=== PATIENT | male | born 1995 ===

== ENCOUNTER 2022-06-08 05:44 | Emergency (ER) | payer SELFPAY ==
[2022-06-08] MEDS ORDERED: SODIUM CHLORIDE IRRI 500 ML 0 ML IR ONE (06:09)
[2022-06-08] MEDS ORDERED: HYDROGEN PEROXIDE 118 ML SOLUTION TP NR (06:52)
[2022-06-08] MEDS ORDERED: SODIUM CHLORIDE 0.9% IRR 500 ML BOTTLE IR NR (06:53)
--- NOTE | 2022-06-08 06:56 | Emergency Department Report ---
- General Chief complaint: Wound/Laceration Stated complaint: CUT ON RT HAND Time Seen by Provider: 06/08/22 06:35 Source: patient, EMS Mode of arrival: Ambulatory Limitations: No Limitations - History of Present Illness Initial comments: 27-year-old [id number] male presents with police custody with injury to right hand. Patient sustained a laceration to his right hand due to a ceramic bowl approximately 2 days ago. Patient states he received suture repair. He remove the sutures himself this morning because they were too tight. The wound was reopened with bleeding while being arrested by police. Minimal pain reported. Patient reports receiving a tetanus within the last 10 years - Related Data Previous Rx's Medication Instructions Recorded Last Taken Type Bacitracin Zinc Oint [Antibiotic 1 applicatio TP BID #1 tube 06/08/22 Unknown Rx Oint] Allergies Allergy/AdvReac Type Severity Reaction Status Date / Time No Known Allergies Allergy Verified 06/08/22 06:57 Abscess Boil HPI - HPI Chief Complaint: Wound/Laceration Stated Complaint: CUT ON RT HAND Time Seen by Provider: 06/08/22 06:35 Home Medications: Previous Rx's Medication Instructions Recorded Last Taken Type Bacitracin Zinc Oint [Antibiotic 1 applicatio TP BID #1 tube 06/08/22 Unknown Rx Oint] Allergies/Adverse Reactions: Allergies Allergy/AdvReac Type Severity Reaction Status Date / Time No Known Allergies Allergy Verified 06/08/22 06:57 ED Review of Systems ROS: Stated complaint: CUT ON RT HAND Other details as noted in HPI Comment: All other systems reviewed and negative ED Past Medical Hx - Medications Home Medications: Home Medications Medication Instructions Recorded Confirmed Last Taken Type Bacitracin Zinc Oint [Antibiotic 1 applicatio TP BID #1 tube 06/08/22 Unknown Rx Oint] ED Physical Exam - General Limitations: No Limitations - Other Other exam information: General: No acute distress Head: Atraumatic Eyes: normal appearance ENT: Moist mucous membranes Neck: Normal appearance, no midline tenderness Chest: Clear to auscultation bilaterally CV: Regular rate and rhythm Abdomen: Soft, normal bowel sounds, nontender, nondistended, no rebound or guarding Back: Normal inspection Extremity: dried blood with sealed wound on right 1.5 cm at [place] surface of bace of thumb, 2nd sealed wound with dried blood at palm at base of index finger 2 cm. no active bleeding. no significant wound dehiscence. No warmth, erythema, or drainage. Full range of motion of hand and fingers without deformity or tenderness Neuro: Alert O x 3, no facial asymmetry, speech clear, no gross motor sensory deficit Psych: Appropriate behavior Skin: See extremity exam ED Course Vital Signs 06/08/22 06/08/22 06/08/22 06:05 06:37 06:38 Temperature 98.0 F 98.8 F Pulse Rate 73 70 Respiratory 15 15 15 Rate Blood Pressure 129/70 129/77 [Left] O2 Sat by Pulse 100 100 100 Oximetry 06/08/22 07:44 Temperature Pulse Rate 96 H Respiratory 18 Rate Blood Pressure 121/84 [Left] O2 Sat by Pulse 100 Oximetry ED Medical Decision Making - Medical Decision Making 27-year-old male police custody with recent right hand laceration that was repaired 2 days ago. Patient admits to removing several stitches. He reinjured the hand with bleeding during arrest today. Patient does not require lacerati on repair at this time. Topical antibiotic will be prescribed to prevent infection. Will need to be monitored for wound infection Bacitracin with wound dressing ordered prior to d/c Critical Care Time: No Critical care attestation.: If time is entered above; I have spent that time in minutes in the direct care of this critically ill patient, excluding procedure time. ED Disposition Clinical Impression: Laceration of right hand Disposition: 01 HOME / SELF CARE / HOMELESS Is pt being admited?: No Does the pt Need Aspirin: No Condition: Stable Instructions: Laceration Care, Adult Additional Instructions: Take the medication as prescribed. Follow-up with your doctor or doctor/clinic provided. Continue to monitor for signs of infection. Return if symptoms worsen as indicated by your discharge instructions. Prescriptions: Bacitracin Zinc Oint [Antibiotic Oint] 1 applicatio TP BID #1 tube Referrals: [facility] [Provider Group] - 3-5 Days Time of Disposition: 08:06
[2022-06-08 07:49] VITALS: BP 121/84
[2022-06-08] MEDS ORDERED: BACITRACIN/POLYMYXIN B OINT 28.35 GM TP NR (08:05)
== END 2022-06-08 09:09 | disposition home or self-care (01) ==
LOC: ED 05:44
DX: S61.411A Laceration without foreign body of right hand, initial encounter (principal); X58.XXXA Exposure to other specified factors, initial encounter; Y93.89 Activity, other specified; Y92.89 Other specified places as the place of occurrence of the external cause; Y99.8 Other external cause status
CPT/HCPCS: 99283